=== PATIENT | female | born 1955 | race Caucasian/White ===

== ENCOUNTER 2023-08-30 07:45 | Observation (INO) | payer MEDICARE ==
[2023-08-26 15:18] LABS: Hemoglobin 13.4 g/dL (12.0-15.5); Mean Corpuscular HGB CONC 34.4 g/dL (32.0-36.0); Mean Corpuscular Hemoglobin 29.6 pg (27.0-33.0); Mean Corpuscular Volume 86.3 fl (81.6-98.3); Mean Platelet Volume 10.2 fl (7.4-10.4); Platelet Count 237 10x3/uL (150-450); RBC Distribution Width 12.1 % (11.5-14.5); Red Blood Cell (RBC) Count 4.52 10x6/uL (3.90-5.03); White Blood Cell (WBC) Count 5.8 10x3/uL (3.5-10.5)
[2023-08-30] MEDS ORDERED: Lidocaine 1% w/Epinephrine 1:100K 20 ML VIAL ONE ×2 (09:13→10:44)
[2023-08-30] MEDS ORDERED: fentaNYL 50 mcg/mL 1 mL Vial ONE (09:44)
[2023-08-30] MEDS ORDERED: PROPOFOL 20 ML ONE (09:44)
[2023-08-30] MEDS ORDERED: Lidocaine 2% PF 5 ML VIAL ONE (09:45)
[2023-08-30] MEDS ORDERED: Rocuronium Bromide 10 MG/ML (10ML VIAL) ONE (09:46)
[2023-08-30] MEDS ORDERED: CEFAZOLIN 2 GM VIAL ONE (09:51)
[2023-08-30] MEDS ORDERED: Midazolam HCl 2 mg/2 ml Vial ONE (09:52)
[2023-08-30] MEDS ORDERED: Ondansetron PF 4 MG/2 ML Vial ONE (10:07)
[2023-08-30] MEDS ORDERED: Dexamethasone 20 MG/5 ML VIAL ONE (10:07)
[2023-08-30] MEDS ORDERED: Ketorolac Tromethamine 30 MG/ML VIAL ONE (10:07)
[2023-08-30] MEDS ORDERED: ePHEDrine Sulfate 50 MG/10 ML VIAL ONE (10:40)
[2023-08-30] MEDS ORDERED: Glycopyrrolate 0.2 MG/ML 5 ML SYRINGE ONE (11:19)
[2023-08-30 11:43] VITALS: BMI 29.5
[2023-08-30] MEDS ORDERED: Zolpidem Tartrate 5 MG TAB PO PRN (12:53)
[2023-08-30] MEDS ORDERED: diphenhydrAMINE 25 MG CAP PO PRN (12:53)
[2023-08-30] MEDS ORDERED: Simethicone Chewable 80 MG TAB PO PRN (12:53)
[2023-08-30] MEDS ORDERED: HYDROcodone/Acetaminophen 10/325 mg Tablet PO PRN (12:53)
[2023-08-30] MEDS ORDERED: Morphine 2 MG/ML VIAL SLOW IVP PRN (12:53)
[2023-08-30] MEDS: HYDROcodone/Acetaminophen 10/325 mg Tablet PO PRN ×2 (16:19→21:34)
[2023-08-30] MEDS: Lactated Ringer's 1,000 ML IV SCH ×2 (16:19→21:38)
[2023-08-30] MEDS ORDERED: Docusate Calcium (SURFAK) 240 MG CAP PO SCH (21:00)
[2023-08-30] MEDS: Ibuprofen 800 MG TAB PO SCH (21:34)
[2023-08-30] MEDS: Docusate 100 MG CAP PO SCH (21:34)
[2023-08-31 04:24] LABS: Hematocrit 33.5 % (34.9-44.5); Hemoglobin 11.2 g/dL (12.0-15.5); Mean Corpuscular HGB CONC 33.4 g/dL (32.0-36.0); Mean Corpuscular Hemoglobin 29.2 pg (27.0-33.0); Mean Corpuscular Volume 87.2 fl (81.6-98.3); Mean Platelet Volume 10.5 fl (7.4-10.4); Platelet Count 243 10x3/uL (150-450); RBC Distribution Width 12.4 % (11.5-14.5); Red Blood Cell (RBC) Count 3.84 10x6/uL (3.90-5.03); White Blood Cell (WBC) Count 9.3 10x3/uL (3.5-10.5)
[2023-08-31 07:45] VITALS: BP 120/65; TEMP 98.9
[2023-08-31] MEDS: Lactated Ringer's 1,000 ML IV SCH (08:09)
[2023-08-31] MEDS: HYDROcodone/Acetaminophen 10/325 mg Tablet PO PRN (08:11)
[2023-08-31] MEDS: Docusate 100 MG CAP PO SCH (08:11)
[2023-08-31] MEDS: Ibuprofen 800 MG TAB PO SCH (08:11)
== END 2023-08-31 10:58 | disposition home or self-care (01) ==
LOC: CSHSDC 07:45 → CSHPED 12:55 → INTOOBSV 12:55
PROVIDERS: ADMIT Obstetrics & Gynecology; ATTEND Obstetrics & Gynecology
PROC: 0JQC3ZZ Repair Pelvic Region Subcutaneous Tissue and Fascia, Percutaneous Approach (ICD-10-PCS; principal; 2023-08-30)
PROC: 0TSC4ZZ Reposition Bladder Neck, Percutaneous Endoscopic Approach (ICD-10-PCS; 2023-08-30)
DX: N39.3 Stress incontinence (female) (male) (principal); N81.10 Cystocele, unspecified; N81.6 Rectocele; F10.90 Alcohol use, unspecified, uncomplicated; J45.909 Unspecified asthma, uncomplicated; Z90.710 Acquired absence of both cervix and uterus; Z88.8 Allergy status to other drugs, medicaments and biological substances; Z88.2 Allergy status to sulfonamides; Z91.040 Latex allergy status; Z79.899 Other long term (current) drug therapy
CPT/HCPCS: 57260; 57288; 85027 ×2; 86850; 86900; 86901; 94640; C1781; J3010; 36415; J1100; J1885; J2001; J2250; J2405; J2704; J7120; J7611; Q9968